=== PATIENT | female | born 1970 | race Caucasian/White ===

== ENCOUNTER → 2017-07-08 | Day surgery (SDC) | payer BC ==
--- NOTE | 2017-07-08 08:39 | Operative Note ---
Surgeon/Diagnoses Surgeon/Rail Detector Car Operator(s) Date of procedure: 07/08/17 Surgeon: MD Amisha Akbar Rail Detector Car Operator(s): Surjit Dimas Diagnoses Pre-op diagnosis: RIGHT lower extremity has had 2 similar) Post-op diagnosis RIGHT lower extremity sebaceous cyst Procedure Procedure Procedure: excision of 2 cm sebaceous cyst from RIGHT lower extremit Indications: BEVERLY BERRY is a 46 year-old Female with a history of Findings: Lesion was an obvious sebaceous cyst. Lesion opened and sebum confirmed. Procedure Description: After informed consent was obtained, the patient was taken to the procedure room. Her mid RIGHT lower extremity was prepped and draped in a sterile fashion. After infiltration local anesthetic an elliptical incision was made around the lesion. The margin of the cyst was entered and see bone was noted. Confirmation of sebaceous cyst made due to these findings. The lesion was excised sharply with scalpel. Cautery was utilized to achieve hemostasis. Skin was closed with 4-0 nylon in an interrupted fashion. Dressings were applied. The patient was transferred to recovery in stable condition. EBL (ml): 5 Anesthesia: 1 percent lidocaine Complications: No immediate Specimens: RIGHT lower extremity sebaceous cyst (not sent for pathologic evaluation as per patient wishes) Disposition Disposition: Stable to recovery from where she will be discharged home. She will follow-up next week. at [id number]
[2017-07-08 15:54] VITALS: BP 137/85
== END ==
LOC: SDC 07:41
PROVIDERS: Surgery
PROC: 0HBKXZZ Excision of Right Lower Leg Skin, External Approach (ICD-10-PCS; principal; 2017-07-08 08:15)
DX: L72.3 Sebaceous cyst (principal)